=== PATIENT | female | born 1985 | race Caucasian/White ===

== ENCOUNTER 2017-12-11 18:13 | Emergency (ER) | payer MEDICARE ==
[~2017-12-11] VITALS: Ht 149.9 cm; Wt 63.5 kg
[~2017-12-11 18:13] MED LIST: ACET325 PO; DOCU100 PO; ENOX30I SC; HYDACE5 PO; HYDR10 PO; HYDSUL200; HYDSUL200 PO; IBUP800; LABE100; LABE100 PO; LABE200 PO; LEVFLO500 PO; METO10 PO; METO25ER PO; METTREX2.5; NAPR220; NAPR220 PO; NIFE30ER PO; Norco 7.5-3251 EACH PO; ONDA4ODT MM; OXYACE5T PO; OXYC5 PO; PRED1; PRED10 PO; PRED5 PO; PROM25 PO; SCOPTP TOP; SULF500A PO; SULTRIDS PO; TRAM50 PO
[2017-12-11] MEDS ORDERED: Percocet 5-3251 EACH PO (20:46)
== END 2017-12-11 20:55 | disposition home or self-care (01) ==
LOC: ER 18:13
DX: M25.552 Pain in left hip (principal); Z88.8 Allergy status to other drugs, medicaments and biological substances; Z79.899 Other long term (current) drug therapy; Z79.52 Long term (current) use of systemic steroids; I10 Essential (primary) hypertension
CPT/HCPCS: 73502; 73700; 99284

== ENCOUNTER → 2018-12-10 | Outpatient (CLI) | payer MEDICARE ==
[~2018-12-10] MED LIST changes: +Percocet 5-3251 EACH PO
[2018-12-10 17:09] LABS: Protein, Urine Random 46.8 mg/dL (0.0-11.9)
== END ==
LOC: LAB 16:15 → LAB SHORT 16:15
PROVIDERS: Internal Medicine
DX: N18.2 Chronic kidney disease, stage 2 (mild) (principal)
CPT/HCPCS: 82570; 84156

== ENCOUNTER 2019-08-08 08:37 | Emergency (ER) | payer MEDICARE ==
[~2019-08-08] VITALS: Ht 149.9 cm; Wt 54.4 kg
[2019-08-08 10:35] LABS: BASOPHILS ABSOLUTE AUTO 0.05 K/mm3 (0.00-0.23); BASOPHILS PERCENT AUTO 1 % (0-2); EOSINOPHILS ABSOLUTE AUTO 0.06 K/mm3 (0.00-0.68); EOSINOPHILS PERCENT AUTO 1 % (0-6); Hemoglobin 10.5 g/dL (11.5-16.0); IMMATURE GRAN ABSOLUTE AUTO 0.05 K/mm3 (0.00-0.10); IMMATURE GRAN PERCENT AUTO 1 % (0-1); LYMPHOCYTES ABSOLUTE AUTO 2.41 K/mm3 (0.84-5.20); LYMPHOCYTES PERCENT AUTO 27 % (21-46); MONOCYTES ABSOLUTE AUTO 0.88 K/mm3 (0.16-1.47); MONOCYTES PERCENT AUTO 10 % (4-13); Mean Corpuscular HGB 25.4 pg (26.0-34.0); Mean Corpuscular Volume 85 fL (80-100); Mean Platelet Volume 11.6 fL (9.1-12.4); NEUTROPHILS ABSOLUTE AUTO 5.55 K/mm3 (1.96-9.15); NEUTROPHILS PERCENT AUTO 62 % (41-73); Platelet Count 288 K/mm3 (150-400); RDW Coefficient Variation 16.3 % (11.7-14.2); RDW Standard Deviation 50.9 fL (35.1-46.3); Red Blood Cell Count 4.13 M/mm3 (3.80-5.20)
[2019-08-08] MEDS ORDERED: BUPRENORPHINE HC8 MG SL (10:48)
[2019-08-08 11:10] LABS: Alanine Aminotransfer (ALT/SGP 24 U/L (12-78); Albumin, Blood 3.9 g/dL (3.4-5.0); Alk Phos 56 U/L (50-136); Anion Gap 4 mmol/L (6-16); Aspartate Aminotrans (AST/SGOT 28 U/L (12-37); Bilirubin, Total 0.5 mg/dL (0.1-1.0); Blood Urea Nitrogen 17 mg/dL (8-24); Bun/Creatinine Ratio 18.1 (12.0-20.0); CO2, Blood 30 mmol/L (21-32); Calcium, Blood 9.4 mg/dL (8.5-10.1); Chloride, Blood 106 mmol/L (98-108); Creatinine, Blood 0.94 mg/dL (0.40-1.00); Globulin, Blood 3.8 g/dL (2.2-4.0); Glomerular Filtration Rate >60 (60-); Glucose, Blood 82 mg/dL (70-99); Potassium, Blood 4.3 mmol/L (3.5-5.5); Sodium, Blood 140 mmol/L (136-145); Total Protein, Blood 7.7 g/dL (6.4-8.2)
[2019-08-08] MEDS ORDERED: NAPR220 PO (13:07)
[2019-08-08] MEDS ORDERED: BACL10 PO (13:07)
[2019-08-08] MEDS ORDERED: GABA800 PO (13:08)
== END 2019-08-08 14:30 | disposition home or self-care (01) ==
LOC: ER 08:37
PROVIDERS: Emergency Medicine
DX: R53.1 Weakness (principal); R53.83 Other fatigue; T42.8X5A Adverse effect of antiparkinsonism drugs and other central muscle-tone depressants, initial encounter; I10 Essential (primary) hypertension; Z88.8 Allergy status to other drugs, medicaments and biological substances; Z79.899 Other long term (current) drug therapy; Z79.52 Long term (current) use of systemic steroids
CPT/HCPCS: 36415; 80053; 85025; 99283; J7120

== ENCOUNTER 2019-11-16 07:31 | Emergency (ER) | payer MEDICARE ==
[~2019-11-16] VITALS: Ht 149.9 cm; Wt 56.7 kg
[~2019-11-16 07:31] MED LIST changes: +BACL10 PO; +BUPRENORPHINE HC8 MG SL; +GABA800 PO
[2019-11-16 09:13] LABS: Source, Urine Clean Catch
[2019-11-16 09:16] LABS: Bilirubin, Urine Neg (Neg); Blood, Urine Neg (Neg); Glucose Qualitative, Urine Neg (Neg); Ketones, Urine Neg (Neg); Leukocyte Esterase, Urine 1+ (Neg); Nitrite, Urine Pos (Neg); Protein, Urine Neg (Neg); Urobilinogen, Urine NORM (Normal)
[2019-11-16 09:22] LABS: Appearance, Urine Cloudy (Clear); Color, Urine Yellow (P-Yellow)
[2019-11-16 09:25] LABS: Bacteria Many /hpf; Red Blood Cells, Urine 0-2 /hpf (0-2); Squamous Epithelial Cells Few /hpf (Few)
[2019-11-16 09:31] LABS: BASOPHILS ABSOLUTE AUTO 0.04 K/mm3 (0.00-0.23); BASOPHILS PERCENT AUTO 0 % (0-2); EOSINOPHILS ABSOLUTE AUTO 0.01 K/mm3 (0.00-0.68); EOSINOPHILS PERCENT AUTO 0 % (0-6); Hematocrit 26.6 % (33.0-51.0); Hemoglobin 7.8 g/dL (11.5-16.0); IMMATURE GRAN ABSOLUTE AUTO 0.09 K/mm3 (0.00-0.10); IMMATURE GRAN PERCENT AUTO 1 % (0-1); LYMPHOCYTES PERCENT AUTO 21 % (21-46); MONOCYTES ABSOLUTE AUTO 0.81 K/mm3 (0.16-1.47); MONOCYTES PERCENT AUTO 7 % (4-13); Mean Corpuscular HGB 25.2 pg (26.0-34.0); Mean Corpuscular HGB Conc 29.3 g/dL (31.5-36.5); Mean Corpuscular Volume 86 fL (80-100); Mean Platelet Volume 11.9 fL (9.1-12.4); NEUTROPHILS ABSOLUTE AUTO 8.99 K/mm3 (1.96-9.15); NEUTROPHILS PERCENT AUTO 72 % (41-73); Platelet Count 245 K/mm3 (150-400); RDW Coefficient Variation 14.7 % (11.7-14.2); RDW Standard Deviation 44.8 fL (35.1-46.3); White Blood Cell Count 12.54 K/mm3 (4.00-11.30)
[2019-11-16 09:58] LABS: Alanine Aminotransfer (ALT/SGP 22 U/L (12-78); Albumin, Blood 3.7 g/dL (3.4-5.0); Alk Phos 42 U/L (50-136); Anion Gap 3 mmol/L (6-16); Aspartate Aminotrans (AST/SGOT 12 U/L (12-37); Blood Urea Nitrogen 57 mg/dL (8-24); Bun/Creatinine Ratio 63.6 (12.0-20.0); CO2, Blood 29 mmol/L (21-32); Calcium, Blood 10.3 mg/dL (8.5-10.1); Chloride, Blood 108 mmol/L (98-108); Globulin, Blood 3.8 g/dL (2.2-4.0); Glomerular Filtration Rate >60 (60-); Glucose, Blood 96 mg/dL (70-99); Potassium, Blood 4.1 mmol/L (3.5-5.5); Sodium, Blood 140 mmol/L (136-145); Total Protein, Blood 7.5 g/dL (6.4-8.2)
[2019-11-16 10:01] LABS: Bilirubin, Total 0.3 mg/dL (0.1-1.0)
[2019-11-16] MEDS ORDERED: CEPH500 PO (11:15)
== END 2019-11-16 11:31 | disposition home or self-care (01) ==
LOC: ER 07:31
PROVIDERS: Physician Assistant
DX: N39.0 Urinary tract infection, site not specified (principal); I10 Essential (primary) hypertension; F17.200 Nicotine dependence, unspecified, uncomplicated
CPT/HCPCS: 36415; 80053; 81001; 85025; 87077; 87086; 87186; 96361; 96365; 96375; 99283-25; J0696; J1170; J7030

== ENCOUNTER → 2020-03-30 | Outpatient (CLI) | payer MEDICARE ==
[~2020-03-30] MED LIST changes: +CEPH500 PO
[2020-03-30 19:59] LABS: Percent Saturation 2.5 % (15.0-50.0)
== END | disposition home or self-care (01) ==
LOC: LAB SHORT 17:54 → LAB 17:54
PROVIDERS: Internal Medicine Hematology & Oncology
DX: N18.2 Chronic kidney disease, stage 2 (mild) (principal); D63.1 Anemia in chronic kidney disease
CPT/HCPCS: 82728; 83540; 83550

== ENCOUNTER → 2020-04-18 | Outpatient (CLI) | payer MEDICARE ==
[~2020-04-18] MED LIST changes: +Citalopram HBr40 MG PO; +Gabapentin600 MG PO; +HYDRA50 PO
[2020-04-18 10:55] LABS: BASOPHILS ABSOLUTE AUTO 0.05 K/mm3 (0.00-0.23); BASOPHILS PERCENT AUTO 0 % (0-2); EOSINOPHILS ABSOLUTE AUTO 0.02 K/mm3 (0.00-0.68); EOSINOPHILS PERCENT AUTO 0 % (0-6); IMMATURE GRAN ABSOLUTE AUTO 0.09 K/mm3 (0.00-0.10); IMMATURE GRAN PERCENT AUTO 1 % (0-1); LYMPHOCYTES ABSOLUTE AUTO 0.81 K/mm3 (0.84-5.20); LYMPHOCYTES PERCENT AUTO 7 % (21-46); MONOCYTES ABSOLUTE AUTO 0.67 K/mm3 (0.16-1.47); MONOCYTES PERCENT AUTO 6 % (4-13); Mean Platelet Volume 11.2 fL (9.1-12.4); NEUTROPHILS ABSOLUTE AUTO 9.65 K/mm3 (1.96-9.15); NEUTROPHILS PERCENT AUTO 86 % (41-73); Platelet Count 322 K/mm3 (150-400); White Blood Cell Count 11.29 K/mm3 (4.00-11.30)
[2020-04-18 11:16] LABS: Hematocrit 33.8 % (33.0-51.0); Mean Corpuscular HGB 23.2 pg (26.0-34.0); Mean Corpuscular HGB Conc 26.6 g/dL (31.5-36.5); Mean Corpuscular Volume 87 fL (80-100); Red Blood Cell Count 3.88 M/mm3 (3.80-5.20)
== END | disposition home or self-care (01) ==
LOC: LAB SHORT 09:20 → LAB 09:20
PROVIDERS: Internal Medicine Hematology & Oncology
DX: M06.09 Rheumatoid arthritis without rheumatoid factor, multiple sites (principal)
CPT/HCPCS: 85025

== ENCOUNTER 2020-06-05 22:55 | Emergency (ER) | payer MEDICARE ==
[~2020-06-05] VITALS: Ht 154.9 cm; Wt 51.3 kg
[~2020-06-05 22:55] MED LIST changes: -Citalopram HBr40 MG PO; -Gabapentin600 MG PO; -HYDRA50 PO
[2020-06-05 23:20] LABS: BASOPHILS ABSOLUTE AUTO 0.06 K/mm3 (0.00-0.23); BASOPHILS PERCENT AUTO 1 % (0-2); EOSINOPHILS ABSOLUTE AUTO 0.05 K/mm3 (0.00-0.68); EOSINOPHILS PERCENT AUTO 0 % (0-6); Hematocrit 37.6 % (33.0-51.0); Hemoglobin 11.3 g/dL (11.5-16.0); IMMATURE GRAN ABSOLUTE AUTO 0.41 K/mm3 (0.00-0.10); IMMATURE GRAN PERCENT AUTO 3 % (0-1); LYMPHOCYTES ABSOLUTE AUTO 1.12 K/mm3 (0.84-5.20); LYMPHOCYTES PERCENT AUTO 9 % (21-46); MONOCYTES ABSOLUTE AUTO 0.55 K/mm3 (0.16-1.47); MONOCYTES PERCENT AUTO 4 % (4-13); Mean Corpuscular HGB 28.3 pg (26.0-34.0); Mean Corpuscular HGB Conc 30.1 g/dL (31.5-36.5); Mean Corpuscular Volume 94 fL (80-100); Mean Platelet Volume 10.2 fL (9.1-12.4); NEUTROPHILS ABSOLUTE AUTO 10.22 K/mm3 (1.96-9.15); NEUTROPHILS PERCENT AUTO 82 % (41-73); Platelet Count 234 K/mm3 (150-400); RDW Coefficient Variation 20.4 % (11.7-14.2); RDW Standard Deviation 70.9 fL (35.1-46.3); White Blood Cell Count 12.41 K/mm3 (4.00-11.30)
[2020-06-05] MEDS ORDERED: BACL10 PO (23:38)
[2020-06-05 23:39] LABS: Alanine Aminotransfer (ALT/SGP 35 U/L (12-78); Albumin, Blood 3.5 g/dL (3.4-5.0); Albumin/Globulin Ratio 0.9 (0.8-1.8); Alk Phos 47 U/L (50-136); Anion Gap 5 mmol/L (6-16); Aspartate Aminotrans (AST/SGOT 42 U/L (12-37); Bilirubin, Total 0.3 mg/dL (0.1-1.0); Blood Urea Nitrogen 25 mg/dL (8-24); Bun/Creatinine Ratio 25.8 (12.0-20.0); CO2, Blood 25 mmol/L (21-32); Calcium, Blood 9.2 mg/dL (8.5-10.1); Chloride, Blood 105 mmol/L (98-108); Creatinine, Blood 0.97 mg/dL (0.40-1.00); Globulin, Blood 3.8 g/dL (2.2-4.0); Glomerular Filtration Rate >60 (60-); Glucose, Blood 128 mg/dL (70-99); Magnesium, Blood 2.1 mg/dL (1.6-2.4); Potassium, Blood 5.2 mmol/L (3.5-5.5); Sodium, Blood 135 mmol/L (136-145); Total Protein, Blood 7.3 g/dL (6.4-8.2); Troponin I <0.015 ng/mL (0.000-0.040)
[2020-06-05] MEDS ORDERED: BUPRENORPHINE HC8 MG SL (23:40)
[2020-06-05] MEDS ORDERED: HYDRA50 PO (23:42)
[2020-06-05] MEDS ORDERED: Citalopram HBr40 MG PO (23:44)
[2020-06-05] MEDS ORDERED: Gabapentin600 MG PO (23:45)
== END 2020-06-06 06:16 | disposition home or self-care (01) ==
LOC: ER 22:55 → MEDS 22:56 → ER 06-06 03:57 → MEDS 06-06 03:57 → ER 06-06 06:16
PROVIDERS: Emergency Medicine
DX: G93.40 Encephalopathy, unspecified (principal); G35 Multiple sclerosis; J18.9 Pneumonia, unspecified organism; Z88.8 Allergy status to other drugs, medicaments and biological substances; Z79.899 Other long term (current) drug therapy; I10 Essential (primary) hypertension; F41.9 Anxiety disorder, unspecified
CPT/HCPCS: 36415; 70450; 71045; 80053; 83605; 83735; 83880; 84484; 85025; 93005; 93010; 96374; 99285-25; J1956; J2060; J7030

== ENCOUNTER 2020-07-13 15:29 | Emergency (ER) | payer MEDICARE ==
[~2020-07-13] VITALS: Ht 149.9 cm; Wt 56.7 kg
[~2020-07-13 15:29] MED LIST changes: +Citalopram HBr40 MG PO; +Gabapentin600 MG PO; +HYDRA50 PO
== END 2020-07-13 19:44 | disposition home or self-care (01) ==
LOC: ER 15:29
DX: S01.01XA Laceration without foreign body of scalp, initial encounter (principal); F32.9 Major depressive disorder, single episode, unspecified; F41.9 Anxiety disorder, unspecified; Z88.1 Allergy status to other antibiotic agents; Z88.8 Allergy status to other drugs, medicaments and biological substances; Z79.52 Long term (current) use of systemic steroids; Z79.899 Other long term (current) drug therapy
CPT/HCPCS: 12002; 70450; 99283-25

== ENCOUNTER 2020-07-24 00:02 | Emergency (ER) | payer MEDICARE ==
[~2020-07-24] VITALS: Ht 154.9 cm; Wt 47.6 kg
[2020-07-24 01:17] LABS: BASOPHILS ABSOLUTE AUTO 0.03 K/mm3 (0.00-0.23); BASOPHILS PERCENT AUTO 0 % (0-2); EOSINOPHILS ABSOLUTE AUTO 0.04 K/mm3 (0.00-0.68); EOSINOPHILS PERCENT AUTO 0 % (0-6); Hematocrit 39.3 % (33.0-51.0); IMMATURE GRAN ABSOLUTE AUTO 0.16 K/mm3 (0.00-0.10); IMMATURE GRAN PERCENT AUTO 1 % (0-1); LYMPHOCYTES ABSOLUTE AUTO 1.06 K/mm3 (0.84-5.20); LYMPHOCYTES PERCENT AUTO 9 % (21-46); MONOCYTES ABSOLUTE AUTO 1.07 K/mm3 (0.16-1.47); MONOCYTES PERCENT AUTO 9 % (4-13); Mean Corpuscular HGB Conc 30.5 g/dL (31.5-36.5); Mean Corpuscular Volume 98 fL (80-100); Mean Platelet Volume 10.6 fL (9.1-12.4); NEUTROPHILS ABSOLUTE AUTO 9.33 K/mm3 (1.96-9.15); NEUTROPHILS PERCENT AUTO 80 % (41-73); Platelet Count 336 K/mm3 (150-400); RDW Coefficient Variation 12.6 % (11.7-14.2); RDW Standard Deviation 45.7 fL (35.1-46.3); White Blood Cell Count 11.69 K/mm3 (4.00-11.30)
[2020-07-24 01:37] LABS: Alanine Aminotransfer (ALT/SGP 29 U/L (12-78); Albumin, Blood 3.7 g/dL (3.4-5.0); Alk Phos 68 U/L (50-136); Anion Gap 3 mmol/L (6-16); Aspartate Aminotrans (AST/SGOT 13 U/L (12-37); Bilirubin, Total 0.3 mg/dL (0.1-1.0); Blood Urea Nitrogen 27 mg/dL (8-24); CO2, Blood 33 mmol/L (21-32); Calcium, Blood 9.5 mg/dL (8.5-10.1); Chloride, Blood 104 mmol/L (98-108); Creatinine, Blood 0.82 mg/dL (0.40-1.00); Globulin, Blood 3.8 g/dL (2.2-4.0); Glomerular Filtration Rate >60 (60-); Glucose, Blood 123 mg/dL (70-99); Magnesium, Blood 2.4 mg/dL (1.6-2.4); Phosphorus, Blood 2.5 mg/dL (2.5-4.9); Potassium, Blood 4.5 mmol/L (3.5-5.5); Sodium, Blood 140 mmol/L (136-145); Total Protein, Blood 7.5 g/dL (6.4-8.2)
[2020-07-24] MEDS ORDERED: DOC250 PO (07:46)
[2020-07-25] MEDS ORDERED: Keflex500 MG PO (22:04)
== END 2020-07-24 07:54 | disposition home or self-care (01) ==
LOC: ER 00:02
PROVIDERS: Emergency Medicine
DX: R10.9 Unspecified abdominal pain (principal); Z86.69 Personal history of other diseases of the nervous system and sense organs; K59.00 Constipation, unspecified; R06.02 Shortness of breath; I10 Essential (primary) hypertension; Z88.1 Allergy status to other antibiotic agents; Z88.8 Allergy status to other drugs, medicaments and biological substances; Z79.52 Long term (current) use of systemic steroids; Z79.899 Other long term (current) drug therapy
CPT/HCPCS: 74177; 80053; 83690; 83735; 84100; 85025; 96361; 96365-59; 96375; 96376; 99284-25; A9270; J1170; J2405; J3010; J3360; J3475; J7030; Q9967

== ENCOUNTER 2020-07-25 19:37 | Emergency (ER) | payer MEDICARE ==
[~2020-07-25] VITALS: Ht 149.9 cm; Wt 54.4 kg
[~2020-07-25 19:37] MED LIST changes: +DOC250 PO
[2020-07-25 20:26] LABS: Source, Urine Clean Catch
[2020-07-25 20:29] LABS: BASOPHILS ABSOLUTE AUTO 0.03 K/mm3 (0.00-0.23); BASOPHILS PERCENT AUTO 0 % (0-2); EOSINOPHILS ABSOLUTE AUTO 0.04 K/mm3 (0.00-0.68); EOSINOPHILS PERCENT AUTO 0 % (0-6); Hematocrit 42.1 % (33.0-51.0); Hemoglobin 12.8 g/dL (11.5-16.0); IMMATURE GRAN ABSOLUTE AUTO 0.21 K/mm3 (0.00-0.10); IMMATURE GRAN PERCENT AUTO 2 % (0-1); LYMPHOCYTES ABSOLUTE AUTO 2.02 K/mm3 (0.84-5.20); LYMPHOCYTES PERCENT AUTO 21 % (21-46); MONOCYTES ABSOLUTE AUTO 1.14 K/mm3 (0.16-1.47); MONOCYTES PERCENT AUTO 12 % (4-13); Mean Corpuscular HGB 29.8 pg (26.0-34.0); Mean Corpuscular HGB Conc 30.4 g/dL (31.5-36.5); Mean Corpuscular Volume 98 fL (80-100); Mean Platelet Volume 10.4 fL (9.1-12.4); NEUTROPHILS ABSOLUTE AUTO 6.26 K/mm3 (1.96-9.15); NEUTROPHILS PERCENT AUTO 65 % (41-73); Platelet Count 315 K/mm3 (150-400); RDW Coefficient Variation 12.3 % (11.7-14.2); RDW Standard Deviation 44.7 fL (35.1-46.3)
[2020-07-25 20:30] LABS: Appearance, Urine Clear (Clear); Bilirubin, Urine Neg (Neg); Blood, Urine 3+ (Neg); Color, Urine Amber (P-Yellow); Glucose Qualitative, Urine Neg (Neg); Ketones, Urine Neg (Neg); Leukocyte Esterase, Urine 3+ (Neg); Nitrite, Urine Neg (Neg); Protein, Urine 2+ (Neg); Specific Gravity, Urine 1.015 (1.003-1.022); Urobilinogen, Urine NORM (Normal); pH, Urine 6.5 (5.0-8.0)
[2020-07-25 20:43] LABS: Alanine Aminotransfer (ALT/SGP 33 U/L (12-78); Albumin, Blood 3.7 g/dL (3.4-5.0); Albumin/Globulin Ratio 1.1 (0.8-1.8); Alk Phos 61 U/L (50-136); Anion Gap 5 mmol/L (6-16); Aspartate Aminotrans (AST/SGOT 17 U/L (12-37); Bilirubin, Total 0.3 mg/dL (0.1-1.0); Blood Urea Nitrogen 17 mg/dL (8-24); Bun/Creatinine Ratio 28.1 (12.0-20.0); CO2, Blood 33 mmol/L (21-32); Calcium, Blood 9.7 mg/dL (8.5-10.1); Chloride, Blood 102 mmol/L (98-108); Creatinine, Blood 0.61 mg/dL (0.40-1.00); Globulin, Blood 3.5 g/dL (2.2-4.0); Glomerular Filtration Rate >60 (60-); Glucose, Blood 86 mg/dL (70-99); Potassium, Blood 4.3 mmol/L (3.5-5.5); Sodium, Blood 140 mmol/L (136-145); Total Protein, Blood 7.2 g/dL (6.4-8.2)
[2020-07-25 20:46] LABS: Bacteria Many /hpf; Red Blood Cells, Urine 0-2 /hpf (0-2); Squamous Epithelial Cells Few /hpf (Few)
[2020-07-25] MEDS ORDERED: Keflex500 MG PO (22:04)
[2020-07-26] MEDS ORDERED: OXYCODONE-ACET1 EAC2 PO (14:04)
[2020-07-26] MEDS ORDERED: DALFAMPRIDINE E10 MG PO (14:05)
== END 2020-07-25 22:55 | disposition home or self-care (01) ==
LOC: ER 19:37
PROVIDERS: Emergency Medicine
DX: N39.0 Urinary tract infection, site not specified (principal); G89.29 Other chronic pain; Z88.1 Allergy status to other antibiotic agents; Z88.8 Allergy status to other drugs, medicaments and biological substances; Z79.52 Long term (current) use of systemic steroids; Z79.899 Other long term (current) drug therapy
CPT/HCPCS: 80053; 81001; 81025; 85025; 87086; 96374; 96375; 99284-25; J1200; J1630

== ENCOUNTER 2020-07-26 13:08 | Emergency (ER) | payer MEDICARE, OTHER ==
[~2020-07-26] VITALS: Ht 149.9 cm; Wt 54.4 kg
[~2020-07-26 13:08] MED LIST changes: +Keflex500 MG PO
[2020-07-26] MEDS ORDERED: OXYCODONE-ACET1 EAC2 PO (14:04)
[2020-07-26] MEDS ORDERED: DALFAMPRIDINE E10 MG PO (14:05)
[2020-07-26 15:46] LABS: BASOPHILS ABSOLUTE AUTO 0.04 K/mm3 (0.00-0.23); BASOPHILS PERCENT AUTO 0 % (0-2); EOSINOPHILS ABSOLUTE AUTO 0.04 K/mm3 (0.00-0.68); EOSINOPHILS PERCENT AUTO 0 % (0-6); Hematocrit 41.4 % (33.0-51.0); Hemoglobin 12.9 g/dL (11.5-16.0); IMMATURE GRAN ABSOLUTE AUTO 0.37 K/mm3 (0.00-0.10); IMMATURE GRAN PERCENT AUTO 4 % (0-1); LYMPHOCYTES ABSOLUTE AUTO 1.88 K/mm3 (0.84-5.20); LYMPHOCYTES PERCENT AUTO 20 % (21-46); MONOCYTES ABSOLUTE AUTO 1.13 K/mm3 (0.16-1.47); MONOCYTES PERCENT AUTO 12 % (4-13); Mean Corpuscular HGB 30.2 pg (26.0-34.0); Mean Corpuscular HGB Conc 31.2 g/dL (31.5-36.5); Mean Corpuscular Volume 97 fL (80-100); Mean Platelet Volume 9.9 fL (9.1-12.4); NEUTROPHILS ABSOLUTE AUTO 5.95 K/mm3 (1.96-9.15); NEUTROPHILS PERCENT AUTO 63 % (41-73); Platelet Count 299 K/mm3 (150-400); RDW Coefficient Variation 12.4 % (11.7-14.2); RDW Standard Deviation 44.4 fL (35.1-46.3); Red Blood Cell Count 4.27 M/mm3 (3.80-5.20); White Blood Cell Count 9.41 K/mm3 (4.00-11.30)
[2020-07-26 16:07] LABS: Source, Urine Clean Catch
[2020-07-26 16:08] LABS: Alanine Aminotransfer (ALT/SGP 27 U/L (12-78); Albumin, Blood 3.5 g/dL (3.4-5.0); Albumin/Globulin Ratio 0.9 (0.8-1.8); Alk Phos 60 U/L (50-136); Anion Gap 5 mmol/L (6-16); Aspartate Aminotrans (AST/SGOT 17 U/L (12-37); Bilirubin, Total 0.6 mg/dL (0.1-1.0); Blood Urea Nitrogen 20 mg/dL (8-24); Bun/Creatinine Ratio 28.4 (12.0-20.0); CO2, Blood 31 mmol/L (21-32); Calcium, Blood 10.1 mg/dL (8.5-10.1); Chloride, Blood 105 mmol/L (98-108); Globulin, Blood 3.9 g/dL (2.2-4.0); Glomerular Filtration Rate >60 (60-); Glucose, Blood 76 mg/dL (70-99); Magnesium, Blood 2.1 mg/dL (1.6-2.4); Sodium, Blood 141 mmol/L (136-145); Total Protein, Blood 7.4 g/dL (6.4-8.2); Troponin I <0.015 ng/mL (0.000-0.040)
[2020-07-26 16:11] LABS: Appearance, Urine Hazy (Clear); Bilirubin, Urine Neg (Neg); Blood, Urine 1+ (Neg); Color, Urine Yellow (P-Yellow); Glucose Qualitative, Urine Neg (Neg); Ketones, Urine 2+ (Neg); Leukocyte Esterase, Urine 1+ (Neg); Nitrite, Urine Neg (Neg); Protein, Urine Neg (Neg); Urobilinogen, Urine NORM (Normal)
[2020-07-26 16:41] LABS: Amorphous Light (0-Heavy); Bacteria Mod /hpf; Red Blood Cells, Urine 0-2 /hpf (0-2); Squamous Epithelial Cells Few /hpf (Few)
== END 2020-07-27 | disposition short-term general hospital (02) ==
LOC: MRI 13:08 → ER 13:08
PROVIDERS: Emergency Medicine
DX: M25.80 Other specified joint disorders, unspecified joint (principal); G95.9 Disease of spinal cord, unspecified; I10 Essential (primary) hypertension; F32.9 Major depressive disorder, single episode, unspecified; F41.9 Anxiety disorder, unspecified; F17.290 Nicotine dependence, other tobacco product, uncomplicated; Z88.1 Allergy status to other antibiotic agents; Z88.8 Allergy status to other drugs, medicaments and biological substances; Z79.899 Other long term (current) drug therapy; Z79.52 Long term (current) use of systemic steroids; Z20.828 Contact with and (suspected) exposure to other viral communicable diseases
CPT/HCPCS: 36415; 70553; 71046; 72156; 80053; 81001; 83690; 83735; 84484; 85025; 85651; 86140; 87086; 93005; 93010; 96361; 96374-59; 96375-59; 96376-59; 99285-25; A9577; J3010; J3360; J7120; L0160; U0003

== ENCOUNTER → 2020-10-16 | Outpatient (CLI) | payer MEDICARE ==
[~2020-10-16] MED LIST changes: +DALFAMPRIDINE E10 MG PO; +Norco 5-325 Ta1 EACH PO; +OXYCODONE-ACET1 EAC2 PO
== END ==
LOC: LAB SHORT 17:05 → LAB EV 17:05
DX: T24.219A Burn of second degree of unspecified thigh, initial encounter (principal)
CPT/HCPCS: 87070; 87075; 87077; 87147; 87186; 87205

== ENCOUNTER 2020-10-24 00:37 | Day surgery (SDC) | payer MEDICARE ==
[~2020-10-24 00:37] MED LIST changes: -Norco 5-325 Ta1 EACH PO
== END 2020-10-24 22:51 | disposition home or self-care (01) ==
LOC: WOUND 00:37
DX: T24.212D Burn of second degree of left thigh, subsequent encounter (principal); T24.211D Burn of second degree of right thigh, subsequent encounter; I96 Gangrene, not elsewhere classified; I10 Essential (primary) hypertension; F17.290 Nicotine dependence, other tobacco product, uncomplicated; M06.9 Rheumatoid arthritis, unspecified; M48.9 Spondylopathy, unspecified; G62.9 Polyneuropathy, unspecified; Z88.8 Allergy status to other drugs, medicaments and biological substances; Z88.1 Allergy status to other antibiotic agents; Z79.52 Long term (current) use of systemic steroids; Z79.899 Other long term (current) drug therapy; Z20.828 Contact with and (suspected) exposure to other viral communicable diseases; X10.0XXD Contact with hot drinks, subsequent encounter
CPT/HCPCS: G0463

== ENCOUNTER 2020-11-01 00:42 | Day surgery (SDC) | payer MEDICARE | END 2020-11-01 22:47 | disposition home or self-care (01) | LOC: WOUND 00:42 | DX: T24.211D Burn of second degree of right thigh, subsequent encounter (principal); T24.212D Burn of second degree of left thigh, subsequent encounter; B95.62 Methicillin resistant Staphylococcus aureus infection as the cause of diseases classified elsewhere; M06.9 Rheumatoid arthritis, unspecified; I10 Essential (primary) hypertension; G62.9 Polyneuropathy, unspecified; Z79.52 Long term (current) use of systemic steroids; F17.290 Nicotine dependence, other tobacco product, uncomplicated | CPT/HCPCS: A9270 ==

== ENCOUNTER 2020-11-08 00:29 | Day surgery (SDC) | payer MEDICARE, OTHER | END 2020-11-08 23:16 | disposition home or self-care (01) | LOC: WOUND 00:29 | DX: T24.211D Burn of second degree of right thigh, subsequent encounter (principal); T24.212D Burn of second degree of left thigh, subsequent encounter; X08.8XXD Exposure to other specified smoke, fire and flames, subsequent encounter; M06.9 Rheumatoid arthritis, unspecified; I10 Essential (primary) hypertension; Z79.899 Other long term (current) drug therapy; Z20.822 Contact with and (suspected) exposure to COVID-19; Z88.1 Allergy status to other antibiotic agents; Z88.8 Allergy status to other drugs, medicaments and biological substances | CPT/HCPCS: A9270 ==

== ENCOUNTER 2020-11-25 02:19 | Day surgery (SDC) | payer MEDICARE, OTHER | END 2020-11-25 23:45 | disposition home or self-care (01) | LOC: WOUND 02:19 | DX: T24.212D Burn of second degree of left thigh, subsequent encounter (principal); T24.211D Burn of second degree of right thigh, subsequent encounter; M06.9 Rheumatoid arthritis, unspecified; I10 Essential (primary) hypertension | CPT/HCPCS: A9270 ==

== ENCOUNTER 2020-12-07 01:36 | Day surgery (SDC) | payer MEDICARE | END 2020-12-07 23:01 | disposition home or self-care (01) | LOC: WOUND 01:36 | DX: T24.212D Burn of second degree of left thigh, subsequent encounter (principal); T24.211D Burn of second degree of right thigh, subsequent encounter; X08.8XXD Exposure to other specified smoke, fire and flames, subsequent encounter; G62.9 Polyneuropathy, unspecified; M06.9 Rheumatoid arthritis, unspecified; I10 Essential (primary) hypertension; F17.290 Nicotine dependence, other tobacco product, uncomplicated; Z79.899 Other long term (current) drug therapy | CPT/HCPCS: G0463 ==

== ENCOUNTER 2020-12-21 00:10 | Day surgery (SDC) | payer MEDICARE | END 2020-12-21 22:40 | disposition home or self-care (01) | LOC: WOUND 00:10 | DX: T24.211D Burn of second degree of right thigh, subsequent encounter (principal); Z09 Encounter for follow-up examination after completed treatment for conditions other than malignant neoplasm; Z87.828 Personal history of other (healed) physical injury and trauma; X10.0XXD Contact with hot drinks, subsequent encounter; M06.9 Rheumatoid arthritis, unspecified; I10 Essential (primary) hypertension; F17.290 Nicotine dependence, other tobacco product, uncomplicated; G62.89 Other specified polyneuropathies; Z79.52 Long term (current) use of systemic steroids | CPT/HCPCS: G0463 ==

== ENCOUNTER → 2021-03-09 | Outpatient (CLI) | payer MEDICARE, OTHER ==
[~2021-03-09] MED LIST changes: +Norco 5-325 Ta1 EACH PO
== END | disposition home or self-care (01) ==
LOC: LAB SHORT 17:56 → LAB 17:56
DX: L89.019 Pressure ulcer of right elbow, unspecified stage (principal)
CPT/HCPCS: 87070; 87075; 87077; 87147; 87186; 87205

== ENCOUNTER 2021-03-21 04:54 | Day surgery (SDC) | payer MEDICARE, OTHER ==
[~2021-03-21 04:54] MED LIST changes: -Norco 5-325 Ta1 EACH PO
== END 2021-03-21 23:42 | disposition home or self-care (01) ==
LOC: WOUND 04:54
DX: L89.014 Pressure ulcer of right elbow, stage 4 (principal); G62.9 Polyneuropathy, unspecified; I10 Essential (primary) hypertension; M06.9 Rheumatoid arthritis, unspecified; Z79.899 Other long term (current) drug therapy
CPT/HCPCS: A9270

== ENCOUNTER 2021-03-24 04:20 | Day surgery (SDC) | payer MEDICARE, OTHER | END 2021-03-24 22:42 | disposition home or self-care (01) | LOC: WOUND 04:20 | DX: L89.014 Pressure ulcer of right elbow, stage 4 (principal); G62.9 Polyneuropathy, unspecified | CPT/HCPCS: G0463 ==

== ENCOUNTER 2021-03-31 04:19 | Day surgery (SDC) | payer MEDICARE, OTHER | END 2021-04-01 00:34 | disposition home or self-care (01) | LOC: WOUND 04:19 | DX: L89.014 Pressure ulcer of right elbow, stage 4 (principal); G62.9 Polyneuropathy, unspecified; I10 Essential (primary) hypertension; M06.9 Rheumatoid arthritis, unspecified; F17.290 Nicotine dependence, other tobacco product, uncomplicated | CPT/HCPCS: A9270 ==

== ENCOUNTER 2021-04-05 09:22 | Day surgery (SDC) | payer MEDICARE, OTHER | END 2021-04-05 22:47 | disposition home or self-care (01) | LOC: WOUND 09:22 | DX: L89.014 Pressure ulcer of right elbow, stage 4 (principal); G62.9 Polyneuropathy, unspecified; M06.9 Rheumatoid arthritis, unspecified; I10 Essential (primary) hypertension; F17.290 Nicotine dependence, other tobacco product, uncomplicated | CPT/HCPCS: G0463 ==

== ENCOUNTER 2021-04-12 04:42 | Day surgery (SDC) | payer MEDICARE, OTHER | END 2021-04-12 23:03 | disposition home or self-care (01) | LOC: WOUND 04:42 | DX: L89.014 Pressure ulcer of right elbow, stage 4 (principal); G62.9 Polyneuropathy, unspecified; I10 Essential (primary) hypertension; M06.9 Rheumatoid arthritis, unspecified; F17.290 Nicotine dependence, other tobacco product, uncomplicated | CPT/HCPCS: A9270; G0463 ==

== ENCOUNTER 2021-04-21 15:28 | Emergency (ER) | payer MEDICARE, OTHER ==
[~2021-04-21] VITALS: Ht 144.8 cm; Wt 49.4 kg
[2021-04-21] MEDS ORDERED: Norco 5-325 Ta1 EACH PO (16:31)
== END 2021-04-21 16:36 | disposition home or self-care (01) ==
LOC: ER 15:28
DX: S42.291A Other displaced fracture of upper end of right humerus, initial encounter for closed fracture (principal); F17.290 Nicotine dependence, other tobacco product, uncomplicated; Z88.1 Allergy status to other antibiotic agents; Z88.6 Allergy status to analgesic agent; Z79.52 Long term (current) use of systemic steroids; Z79.899 Other long term (current) drug therapy; W01.190A Fall on same level from slipping, tripping and stumbling with subsequent striking against furniture, initial encounter
CPT/HCPCS: 29105; 73030; 99283-25

== ENCOUNTER 2021-04-27 01:27 | Day surgery (SDC) | payer MEDICARE, OTHER ==
[~2021-04-27 01:27] MED LIST changes: +Norco 5-325 Ta1 EACH PO
== END 2021-04-27 23:38 | disposition home or self-care (01) ==
LOC: WOUND 01:27
DX: L89.014 Pressure ulcer of right elbow, stage 4 (principal); G62.9 Polyneuropathy, unspecified; M48.9 Spondylopathy, unspecified; M06.9 Rheumatoid arthritis, unspecified; I10 Essential (primary) hypertension; F17.290 Nicotine dependence, other tobacco product, uncomplicated; S42.309A Unspecified fracture of shaft of humerus, unspecified arm, initial encounter for closed fracture; X58.XXXA Exposure to other specified factors, initial encounter; Z79.52 Long term (current) use of systemic steroids; Z88.8 Allergy status to other drugs, medicaments and biological substances
CPT/HCPCS: A9270; G0463

== ENCOUNTER 2021-05-11 00:44 | Day surgery (SDC) | payer MEDICARE, OTHER | END 2021-05-11 22:44 | disposition home or self-care (01) | LOC: WOUND 00:44 | DX: L89.014 Pressure ulcer of right elbow, stage 4 (principal); G62.9 Polyneuropathy, unspecified; M06.9 Rheumatoid arthritis, unspecified; I10 Essential (primary) hypertension; F17.290 Nicotine dependence, other tobacco product, uncomplicated; Z79.899 Other long term (current) drug therapy ==

== ENCOUNTER 2021-05-30 01:40 | Day surgery (SDC) | payer MEDICARE, OTHER | END 2021-05-30 23:31 | disposition home or self-care (01) | LOC: WOUND 01:40 | DX: L89.014 Pressure ulcer of right elbow, stage 4 (principal); L03.113 Cellulitis of right upper limb; G62.9 Polyneuropathy, unspecified | CPT/HCPCS: 87070; 87075; 87077; 87147; 87186; 87205; A9270; G0463 ==

== ENCOUNTER 2021-06-06 02:16 | Day surgery (SDC) | payer MEDICARE, OTHER | END 2021-06-06 23:00 | disposition home or self-care (01) | LOC: WOUND 02:16 | DX: L89.014 Pressure ulcer of right elbow, stage 4 (principal); L03.113 Cellulitis of right upper limb; G62.9 Polyneuropathy, unspecified | CPT/HCPCS: 73080; A9270; G0463 ==

== ENCOUNTER 2021-06-13 00:45 | Day surgery (SDC) | payer MEDICARE, OTHER | END 2021-06-13 22:46 | disposition home or self-care (01) | LOC: WOUND 00:45 | DX: L89.014 Pressure ulcer of right elbow, stage 4 (principal); L03.113 Cellulitis of right upper limb; B95.62 Methicillin resistant Staphylococcus aureus infection as the cause of diseases classified elsewhere; G62.9 Polyneuropathy, unspecified; M06.9 Rheumatoid arthritis, unspecified; I10 Essential (primary) hypertension; Z79.52 Long term (current) use of systemic steroids | CPT/HCPCS: A9270 ==

== ENCOUNTER 2021-06-15 02:18 | Day surgery (SDC) | payer MEDICARE, OTHER | END 2021-06-15 23:31 | disposition home or self-care (01) | LOC: WOUND 02:18 | DX: L89.014 Pressure ulcer of right elbow, stage 4 (principal); L03.113 Cellulitis of right upper limb; G62.9 Polyneuropathy, unspecified ==

== ENCOUNTER 2021-06-18 05:18 | Inpatient (IN) | payer MEDICARE, OTHER ==
[~2021-06-18] VITALS: Ht 149.9 cm; Wt 44.2 kg
[2021-06-18 06:07] LABS: BASOPHILS ABSOLUTE AUTO 0.03 K/mm3 (0.00-0.23); BASOPHILS PERCENT AUTO 0 % (0-2); EOSINOPHILS ABSOLUTE AUTO 0.06 K/mm3 (0.00-0.68); EOSINOPHILS PERCENT AUTO 0 % (0-6); Hematocrit 22.8 % (33.0-51.0); Hemoglobin 6.4 g/dL (11.5-16.0); IMMATURE GRAN ABSOLUTE AUTO 0.44 K/mm3 (0.00-0.10); IMMATURE GRAN PERCENT AUTO 3 % (0-1); LYMPHOCYTES ABSOLUTE AUTO 2.75 K/mm3 (0.84-5.20); LYMPHOCYTES PERCENT AUTO 17 % (21-46); MONOCYTES ABSOLUTE AUTO 1.32 K/mm3 (0.16-1.47); MONOCYTES PERCENT AUTO 8 % (4-13); Mean Corpuscular HGB Conc 28.1 g/dL (31.5-36.5); Mean Corpuscular Volume 89 fL (80-100); Mean Platelet Volume 11.8 fL (9.1-12.4); NEUTROPHILS ABSOLUTE AUTO 11.97 K/mm3 (1.96-9.15); NEUTROPHILS PERCENT AUTO 72 % (41-73); NRBC ABSOLUTE 0.04 K/mm3 (0.00-0.02); NRBC Auto 0.2 /100 WBC (0.0-0.2); Platelet Count 260 K/mm3 (150-400); RDW Coefficient Variation 15.6 % (11.7-14.2); RDW Standard Deviation 50.3 fL (35.1-46.3); Red Blood Cell Count 2.56 M/mm3 (3.80-5.20); White Blood Cell Count 16.57 K/mm3 (4.00-11.30)
[2021-06-18 06:22] LABS: Alanine Aminotransfer (ALT/SGP 20 U/L (12-78); Albumin/Globulin Ratio 0.9 (0.8-1.8); Alk Phos 52 U/L (50-136); Anion Gap 3 mmol/L (6-16); Aspartate Aminotrans (AST/SGOT 14 U/L (12-37); Beta HCG, Quantitative, Serum <1 mIU/mL (0-3); Bilirubin, Total 0.2 mg/dL (0.1-1.0); Blood Urea Nitrogen 61 mg/dL (8-24); Bun/Creatinine Ratio 77.9 (12.0-20.0); CO2, Blood 35 mmol/L (21-32); Calcium, Blood 8.7 mg/dL (8.5-10.1); Chloride, Blood 104 mmol/L (98-108); Creatinine, Blood 0.78 mg/dL (0.40-1.00); Globulin, Blood 3.3 g/dL (2.2-4.0); Glomerular Filtration Rate >60 (60-); Glucose, Blood 95 mg/dL (70-99); Potassium, Blood 4.3 mmol/L (3.5-5.5); Sodium, Blood 142 mmol/L (136-145); Total Protein, Blood 6.3 g/dL (6.4-8.2)
[2021-06-18 07:18] LABS: International Normalized Ratio 1.09; Prothrombin Time Results 11.7 Sec (9.7-11.5)
[2021-06-18 11:56] LABS: SARS-Cov-2 (COVID-19) PCR, MMC NEGATIVE (NEGATIVE)
[2021-06-18 12:03] LABS: Source, Urine Clean Catch
[2021-06-18 12:17] LABS: Appearance, Urine Clear (Clear); Bilirubin, Urine Neg (Neg); Blood, Urine Neg (Neg); Color, Urine Yellow (P-Yellow); Glucose Qualitative, Urine Neg (Neg); Ketones, Urine Neg (Neg); Leukocyte Esterase, Urine Neg (Neg); Nitrite, Urine Neg (Neg); Protein, Urine 1+ (Neg); Specific Gravity, Urine 1.005 (1.003-1.022); Urobilinogen, Urine NORM (Normal); pH, Urine 6.5 (5.0-8.0)
[2021-06-18] MEDS ORDERED: ELIQUIS2.5 MG PO (13:15)
[2021-06-18 13:56] LABS: Hematocrit 25.6 % (33.0-51.0); Hemoglobin 7.7 g/dL (11.5-16.0)
--- NOTE | 2021-06-19 05:46 | NUR ---
SHIFT SUMMARY PT IS A 36 Y/O FEMALE, ADMITTED FOR ACUTE BLOOD LOSS. SHE IS A&O X 3, WITH A HX OF MS AND SPINAL STENOSIS. SHE WAS MEDICATED FOR GENERALIZED PAIN WITH SCHEDULED SUBOXONE AND PRN OXYCODONE. NO C/O NAUSEA OR SOB. VITAL SIGNS STABLE. PT RECEIVING D5 + 1/2 NS @ 75 ML/HR, AND CONTINUOUS PROTONIX DRIP. NO ACUTE CHANGES IN PT CONDITION NOTED DURING THE NIGHT. WILL CONTINUE TO MONITOR AND TREAT PER EMAR UNTIL HAND OFF TO DAY SHIFT RN.
[2021-06-19 06:00] LABS: Hematocrit 21.6 % (33.0-51.0); Hemoglobin 6.3 g/dL (11.5-16.0); Mean Corpuscular HGB 26.6 pg (26.0-34.0); Mean Corpuscular HGB Conc 29.2 g/dL (31.5-36.5); Mean Corpuscular Volume 91 fL (80-100); Mean Platelet Volume 11.1 fL (9.1-12.4); NRBC ABSOLUTE 0.02 K/mm3 (0.00-0.02); NRBC Auto 0.2 /100 WBC (0.0-0.2); Platelet Count 186 K/mm3 (150-400); RDW Standard Deviation 51.8 fL (35.1-46.3); Red Blood Cell Count 2.37 M/mm3 (3.80-5.20); White Blood Cell Count 13.02 K/mm3 (4.00-11.30)
[2021-06-19 06:33] LABS: Albumin, Blood 2.7 g/dL (3.4-5.0); Anion Gap 5 mmol/L (6-16); Blood Urea Nitrogen 31 mg/dL (8-24); Bun/Creatinine Ratio 49.8 (12.0-20.0); CO2, Blood 30 mmol/L (21-32); Calcium, Blood 8.3 mg/dL (8.5-10.1); Chloride, Blood 105 mmol/L (98-108); Creatinine, Blood 0.62 mg/dL (0.40-1.00); Glomerular Filtration Rate >60 (60-); Glucose, Blood 129 mg/dL (70-99); Magnesium, Blood 2.1 mg/dL (1.6-2.4); Phosphorus, Blood 2.6 mg/dL (2.5-4.9); Potassium, Blood 4.3 mmol/L (3.5-5.5); Sodium, Blood 140 mmol/L (136-145)
[2021-06-19 08:57] LABS: Percent Saturation 4.3 % (15.0-50.0)
--- NOTE | 2021-06-19 12:26 | NUR ---
RN CONSULTING WITH DR. ARAMBULA REGARDING POSSIBLE USE OF ANESTHESIOLOGIST FOR CASE VS NURSE SEDATION. PT IS UNABLE TO MAINTAIN AN 02 >90 WITHOUT 2 LPM O2 VIA CANNULA. PT ALSO SEEMS VERY SEDATED ALREADY, UNABLE TO KEEP HER EYES OPEN FOR LONG PERIODS OF TIME, BUT DOES APPROPRIATELY RESPOND TO VOICE AND IS ORIENTATED. PT ALSO STATES "SHE IS VERY HARD TO SEDATE, FROM PAST PROCEDURES."
--- NOTE | 2021-06-19 12:50 | NUR ---
06/19/21 1250 DEMETRIUS JONES History, Chart, Medications and Allergies reviewed before start of procedure. 3-LEAD EKG REVIEWED WITH PHYSICIAN PRIOR TO START OF PROCEDURE. O2 VIA POM INTACT THROUGHOUT SEDATION/PROCEDURE. MONITOR INTACT WITH CONTINUOUS PULSE OXIMETRY AND INTERMITTENT BP. MAC WITH DR. LAMBERT
--- NOTE | 2021-06-19 13:22 | NUR ---
PT IN STEP AND IS SLOW TO WAKE. DR. LAMBERT NOTIFIED. STATED THE PT WAS VERY SOMNOLENT PRIOR TO PROCEDURE TO HOLD ONTO HER FOR 10 MORE MINUTES THAN OKAY TO TAKE HER TO THE FLOOR. VSS
--- NOTE | 2021-06-19 14:49 | NUR ---
PT LETHARGIC AFTER EGD. ARROUSABLE WITH PHYSICAL STIMULATION. 2L O2 PLACED, VSS. AFTERNOON MEDICATIONS HELD TO ASPIRATION RISK AT THIS TIME.
--- NOTE | 2021-06-19 18:14 | NUR ---
SHIFT SUMMARY. EGD COMPLETED THIS AFTERNOON, PT RECIEVED ONE UNIT PRBC. PT LETHARGIC POST EGD, AWAKENS WITH VERBAL STIMULI, VSS. NO OTHER CHANGES OR CONCERNS.
[2021-06-20 08:41] LABS: Hematocrit 23.4 % (33.0-51.0); Hemoglobin 7.1 g/dL (11.5-16.0)
[2021-06-20 13:15] LABS: Hematocrit 23.8 % (33.0-51.0); Hemoglobin 7.2 g/dL (11.5-16.0)
[2021-06-20] MEDS ORDERED: FERSU300 PO (14:02)
[2021-06-20] MEDS ORDERED: PANT40 PO (14:02)
--- NOTE | 2021-06-20 14:48 | NUR ---
DISCHARGE NOTE. PT DISCHARGED HOME AT 1430
== END 2021-06-20 14:52 | disposition home or self-care (01) | DRG 384 ==
LOC: ER 05:18 → MEDS 09:29 → ERHOLD 09:29 → MEDS 12:40
PROVIDERS: Emergency Medicine; Internal Medicine; Internal Medicine Gastroenterology; ADMIT Internal Medicine
PROC: 30233N1 Transfusion of Nonautologous Red Blood Cells into Peripheral Vein, Percutaneous Approach (ICD-10-PCS; 2021-06-18)
PROC: 0DB68ZX Excision of Stomach, Via Natural or Artificial Opening Endoscopic, Diagnostic (ICD-10-PCS; principal; 2021-06-19 11:45)
DX: K26.9 Duodenal ulcer, unspecified as acute or chronic, without hemorrhage or perforation (principal); D62 Acute posthemorrhagic anemia; M06.9 Rheumatoid arthritis, unspecified; I10 Essential (primary) hypertension; I35.0 Nonrheumatic aortic (valve) stenosis; Z96.653 Presence of artificial knee joint, bilateral; F32.9 Major depressive disorder, single episode, unspecified; F41.9 Anxiety disorder, unspecified; G43.909 Migraine, unspecified, not intractable, without status migrainosus; T39.395A Adverse effect of other nonsteroidal anti-inflammatory drugs [NSAID], initial encounter; Z96.642 Presence of left artificial hip joint; M48.02 Spinal stenosis, cervical region; K59.00 Constipation, unspecified; Z20.822 Contact with and (suspected) exposure to COVID-19; K44.9 Diaphragmatic hernia without obstruction or gangrene; Z86.73 Personal history of transient ischemic attack (TIA), and cerebral infarction without residual deficits; Z79.01 Long term (current) use of anticoagulants
CPT/HCPCS: 36415; 36430; 74177; 80053; 80069; 82728; 83540; 83550; 83690; 83735; 84702; 85014; 85018; 85025; 85027; 85610; 85730; 86850; 86900; 86901; 86923; 88305; 88342; 96374-59; 97116; 97161; 97165; 97530; 99285-25; A9270; C9113; J1100; J2250; J2405; J2704; J2916; J7030; J7042; J7050; J7120; J7512; P9016; P9612; Q9967; U0004

== ENCOUNTER 2021-06-21 01:21 | Day surgery (SDC) | payer MEDICARE, OTHER ==
[~2021-06-21 01:21] MED LIST changes: +ELIQUIS2.5 MG PO; +FERSU300 PO; +PANT40 PO
== END 2021-06-21 23:03 | disposition home or self-care (01) ==
LOC: WOUND 01:21
DX: L89.014 Pressure ulcer of right elbow, stage 4 (principal); L03.113 Cellulitis of right upper limb; G62.9 Polyneuropathy, unspecified

== ENCOUNTER 2021-06-23 03:15 | Day surgery (SDC) | payer MEDICARE, OTHER | END 2021-06-23 23:30 | disposition home or self-care (01) | LOC: WOUND 03:15 | DX: L89.014 Pressure ulcer of right elbow, stage 4 (principal); L03.113 Cellulitis of right upper limb; G62.9 Polyneuropathy, unspecified | CPT/HCPCS: A9270 ==

== ENCOUNTER 2021-06-27 02:34 | Day surgery (SDC) | payer MEDICARE, OTHER | END 2021-06-27 22:59 | disposition home or self-care (01) | LOC: WOUND 02:34 | DX: L89.014 Pressure ulcer of right elbow, stage 4 (principal); L03.113 Cellulitis of right upper limb; G62.9 Polyneuropathy, unspecified ==